=== PATIENT | female | born 1990 | race Two or more races ===

== ENCOUNTER 2023-10-05 20:08 | Emergency (ER) | payer MEDICAID ==
[~2023-10-05] VITALS: Ht 149.9 cm; Wt 82.5 kg
[~2023-10-05 20:08] MED LIST: CEPH500C PO
[2023-10-06 00:50] VITALS: BP 146/96; TEMP 98.4; O2SAT 97
[2023-10-06 00:51] VITALS: PULSE 85; RESP 18
[2023-10-06] MEDS ORDERED: BUTACC PO (01:14)
[2023-10-06] MEDS ORDERED: ZOFR4T PO (01:14)
[2023-10-06] MEDS ORDERED: PROCHLORPERAZINE MALEATE 10 MG TAB PO ONE (01:15)
[2023-10-06] MEDS ORDERED: KETOROLAC TROMETH 60MG/2ML VIAL IM ONE (01:15)
[2023-10-06] MEDS ORDERED: HYDROcodone-ACET 5/325MG TAB PO ONE (01:15)
== END 2023-10-06 02:31 | disposition home or self-care (01) ==
LOC: ER 20:08
DX: G43.909 Migraine, unspecified, not intractable, without status migrainosus (principal)
CPT/HCPCS: 70450

== ENCOUNTER 2024-11-25 14:49 | Emergency (ER) | payer MEDICAID ==
[~2024-11-25] VITALS: Ht 149.9 cm; Wt 80.0 kg
[~2024-11-25 14:49] MED LIST changes: +BUTACC PO; +ZOFR4T PO
--- NOTE | 2024-11-25 15:06 | ED.PDOC ---
HPI Comments THIS IS A 34 YEAR OLD FEMALE PRESENTING TO THE ED WITH CHIEF COMPLAINT OF LACERATION. PATIENT REPORTS THAT SHE HAD BEEN WASHING DISHES WHEN SHE ACCIDENTALLY BROKE A GLASS, CAUSING HER TO CUT HER RIGHT HAND. PATIENT NOTES SHE HAS CONTROLLED HER BLEEDING. PATIENT REQUESTS TETANUS VACCINE. PATIENT DENIES ANY UNCONTROLLED BLEEDING, NUMBNESS, WEAKNESS, OR ANY FURTHER QUESTIONS AT THIS TIME.NO OTHER SYMPTOMS REPORTED AT THIS TIME OF CARE. Chief Complaint: Laceration Time Seen by MD: 15:04 Reviewed Notes: Nurses Notes, Medications, Allergies Allergies: Coded Allergies: NO KNOWN ALLERGIES (Unverified , 08/25/13) Home Meds Active Scripts Cephalexin Monohydrate (Cephalexin) 500 Mg Cap, 1 CAP PO QID, #28 CAP Prov:JONE THOMPSON 11/25/24 Ondansetron Odt 4MG Tab (ZOFRAN PO) 4 Mg Tb, 1 TAB PO Q8HPRN PRN, #10 TAB as needed for nausea vomitingODT TAB-DISSOLVE IN MOUTH, THEN SWALLOW Prov:DAVID STEWART SEARCH DEVELOPER 10/06/23 Sqiidigbpp-Lixngag-Irvqknxh (Fiorinal Capsule) 1 Cap Cp, 1 CAP PO Q6HPRN PRN, #8 CAP as neede for headache Prov:DAVID STEWART Q SEARCH DEVELOPER 10/06/23 Cephalexin Monohydrate (Cephalexin) 500 Mg Cap, 1 CAP PO TID for 5 Days, #15 CAP Prov:ZHOU MORILLO DO 07/19/23 Information Source: Patient Mode of Arrival: Ambulatory Severity: Mild, Moderate Severity of Laceration: Controlled Bleeding Complexity: Intermediate Timing: Hours Prehospital treatment: None Laceration Location: Hand Mechanism: Glass Last Tetanus: > 5 Years, Unknown Laceration Length (cm): 3 Skin Type: Flap Depth of Injury: SQ Tendon Injury: 0% Tender: Mild Discharge: None Associated Signs and Symptoms: None Past Medical History PAST MEDICAL HISTORY: Denies Surgical History: Denies all surgeries ASBESTOS REMOVAL SUPERVISOR History: No Pertinent ASBESTOS REMOVAL SUPERVISOR History Family History Family History: Unknown Social History Smoker: Non-Smoker Alcohol: Denies ETOH Use Drugs: Denies Drug Use Lives In: Home Constitutional: denies: chills, diaphoresis, fatigue, fever, malaise, sweats, weakness, others EENTM: denies: blurred vision, double vision, ear bleeding, ear discharge, ear drainage, ear pain, ear ringing, eye pain, eye redness, hearing loss, mouth pain, mouth swelling, nasal discharge, nose bleeding, nose congestion, nose pain, photophobia, tearing, throat pain, throat swelling, voice changes, others Respiratory: denies: cough, hemoptysis, orthopnea, SOB at rest, shortness of breath, SOB with excertion, stridor, wheezing, others Cardiovascular: denies: chest pain, dizzy spells, diaphoresis, Dyspnea on exertion, edema, irregular heart beat, left arm pain, lightheadedness, palpitations, PND, syncope, others Gastrointestinal: denies: abdomen distended, abdominal pain, blood streaked bowels, constipated, diarrhea, dysphagia, difficulty swallowing, hematemesis, melena, nausea, poor appetite, poor fluid intake, rectal bleeding, rectal pain, vomiting, others Genitourinary: denies: abnormal vagina bleeding, burning, dyspareunia, dysuria, flank pain, frequency, hematuria, incontinence, pain, , vagina discharge, urgency, others Neurological: denies: dizziness, fainting, headache, left sided numbness, left sided weakness, numbness, paresthesia, pre-existing deficit, right sided numbness, right sided weakness, seizure, speech problems, tingling, tremors, weakness, others Musculoskeletal: denies: back pain, gout, joint pain, joint swelling, muscle pain, muscle stiffness, neck pain, others Integumetry: reports: laceration (RIGHT HAND ); denies: bruises, change in color, change in hair/nails, dryness, lesions, lumps, rash, wounds, others Allergic/Immunocompromised: denies: Difficulty Healing, Frequent Infections, Hives, Itching, others Hematologic/Lymphatic: denies: anemia, blood clots, easy bleeding, easy bruising, swollen glands, others Endocrine: denies: excessive hunger, excessive sweating, excessive thirst, excessive urination, flushing, intolerance to cold, intolerance to heat, unexplained weight gain, unexplained weight loss, others Psychiatric: denies: anxiety, bipolar disorder, depression, hopeless, panic disorder, schizophrenia, sleepless, suicidal, others All Other Systems: Reviewed and Negative Physical Exam General Appearance: No Apparent Distress, Obese HEENT: Normal ENT Inspection, PERRL/EOMI, Pharynx Normal, TMs Normal Neck: Full Range of Motion, Non-Tender, Normal, Normal Inspection Respiratory: Chest Non-Tender, Lungs Clear, No Accessory Muscle Use, No Respiratory Distress, Normal Breath Sounds Cardiovascular: No Edema, No JVD, No Murmur, No Gallop, Normal Peripheral Pulses, Regular Rate/Rhythm Breast Exam: Deferred Gastrointestinal: No Organomegaly, Non Tender, No Pulsatile Mass, Normal Bowel Sounds, Soft Genitalia: Deferred Pelvic: Deferred Rectal: Deferred Extremities: No calf tenderness, Normal capillary refill, Normal range of motion, No pedal edema, Tender (AND LACERATION ON RIGHT DORSAL HAND, NO BONY TENDERNESS, SWELLING AND DEFORMITY. ) Musculoskeletal : Apperance: Normal Neurologic: Alert, health and fitness instructor II-XII nml as Tested, No Motor Deficits, Normal Affect, Normal Mood, No Sensory Deficits Cerebellar Function: Normal Reflexes: Normal Skin: Dry, Lacerations (3CM IRREGULAR LACERATION ON RIGHT DORSAL HAND, NO BLEEDING AND FB, NEUROVASCULAR INTACT, NORMAL ROM. ), Normal Color, Warm Peripheral Pulses: 2+ carotid (R), 2+ carotid (L) Lymphatic: No Adenopathy Was a procedure done? Was a procedure done?: Yes Sedation Sedation?: No Laceration Repair : Location RIGHT HAND Length 3CM Anesthetic: Lidocaine, Without epi Laceration Repair Prep: Saline, Manual Scrub Laceration Repair Wound Comple: epidermis/dermis repair, subcut tissue repair Laceration Repair: Number of sutures (8, 4-0 ETHILON SUTURES), SQ, Size (4- 0), Nylon, Simple, Bacitracin, Gauze Informed consent obtained: No Risks, benefits, and alternati: Yes Images 1 - Differential diagnosis Generic Laceration: Laceration X-Ray, Labs, Meds, VS Vital Signs Date Time Temp Pulse Resp B/P (MAP) Pulse Ox O2 Delivery O2 Flow Rate FiO2 11/25/24 14:54 98.2 89 16 150/90 97 98.2 X-Ray, Labs, Meds, VS Comment EXTERNAL MEDICAL RECORDS REVIEWED: [NONE] INDEPENDENT HISTORIANS: [NONE] SOCIAL DETERMINANTS OF HEALTH: [NONE] LABS ORDERED: NONE REVIEWED AND INTERPRETED RESULTS: NONE IMAGING ORDERED: NONE TREATMENTS ORDERED: LIDOCAINE PROCEDURES PERFORMED: LACERATION REPAIR OF RIGHT HAND CRITICAL CARE TIME: NONE I HAVE DISCUSSED THE PATIENT WITH THE ATTENDING PHYSICIAN DR. SNIDER AND HE AGREES WITH THE PATIENT'S PLAN OF CARE AND DISPOSITION. BASED ON HISTORY OF PRESENT ILLNESS, AND PHYSICAL EXAM, PATIENT WILL BE DISCHARGED HOME. DISCUSSED PLAN FOR DISCHARGE HOME WITH RX []. MEDICATION WARNINGS GIVEN. SHARED DECISION MAKING: DISCUSSED WITH PATIENT THAT THEIR WORKUP WAS NORMAL. PATIENT INSTRUCTED TO FOLLOW UP WITH PRIMARY CARE PROVIDER IN 1-2 DAYS FOR RE- EVALUATION OF SYMPTOMS. PATIENT VERBALIZES UNDERSTANDING TO RETURN TO ED FOR NEW OR WORSENING SYMPTOMS OR IF FOLLOW UP WITH PCP CANNOT BE OBTAINED. PATIENT FEELS COMFORTABLE GOING HOME AT THIS TIME. ALL QUESTIONS ADDRESSED AT TIME OF DISCHARGE. Time of 1ST Reevaluation: 15:30 Reevaluation 1ST: Unchanged Patient Education/Counseling: Diagnosis, Treatment, Need For Follow Up Family Education/Counseling: Diagnosis, Treatment, Need For Follow Up Medical Screening: No EMC Exist At This Time Departure 1 Departure Time of Disposition: 15:30 Impression: Primary Impression: Laceration of right hand Qualified Codes: S61.411A - Laceration without foreign body of right hand, initial encounter Disposition: HOME / SELF CARE / HOMELESS Condition: Stable Additional Instructions: FOLLOW-UP WITH PCP IN 1 TO 2 DAYS. TAKE MEDICATIONS PRESCRIBED. RETURN TO ED FOR ANY NEW OR WORSENING SYMPTOMS. e-Prescriptions Cephalexin Monohydrate (Cephalexin) 500 Mg Cap 1 CAP PO QID, #28 CAP Prov: JONE THOMPSON 11/25/24 Discharged With: Self Critical Care Note Critical Care Time?: No Stability Stability form required: No Heart Score Heart Score: Heart Score Response (Comments) Value History N/A 0 EKG N/A 0 Age N/A 0 Risk Factors N/A 0 Troponin N/A 0 Total 0 I personally scribed for JONE THOMPSON ([email or web address]) on 11/25/24 at 15:06. Electronically submitted by Aravind Glaser ([email or web address]). I personally scribed for JONE THOMPSON ([email or web address]) on 11/25/24 at 15:14. Electronically submitted by Aravind Glaser ([email or web address]). I personally scribed for JONE THOMPSON ([email or web address]) on 11/25/24 at 15:19. Electronically submitted by Aravind Glaser ([email or web address]). JONE THOMPSON Nov 25, 2024 15:06
[2024-11-25] MEDS ORDERED: CEPH500C PO (15:18)
[2024-11-25] MEDS: TETANUS-DIPTH-ACEL PERTUSSIS 0.5ML SYR Tdap IM ONE (15:20)
[2024-11-25 15:23] VITALS: BP 129/79; TEMP 98
[2024-11-25 15:24] VITALS: PULSE 80; RESP 16; O2SAT 100
== END 2024-11-25 15:26 | disposition home or self-care (01) ==
LOC: ER 14:49
DX: S61.411A Laceration without foreign body of right hand, initial encounter (principal); W25.XXXA Contact with sharp glass, initial encounter; Y93.G1 Activity, food preparation and clean up; Y92.89 Other specified places as the place of occurrence of the external cause; Y99.8 Other external cause status
CPT/HCPCS: 12002; 12032; 90471; 90715

== ENCOUNTER → 2025-02-20 19:09 | Emergency (ER) | payer MEDICAID ==
[~2025-02-20] VITALS: Ht 149.9 cm; Wt 84.9 kg
[~2025-02-20 19:09] MED LIST changes: +ACET500T58 PO; +IBUP-1456 PO
--- NOTE | 2025-02-20 19:39 | ED.PDOC ---
Eye-HPI HPI Comments 34 y/o obese, Nepali-speaking F presents with spouse for c/c of throat swelling with associated throat and left ear pain on-and-off for 1x week. Denies any shortness of breath, fever, chills, or further acute symptoms. No endorsed known recent sick contact or travel or pertinent medical history. Vitals stable and within normal limits. Chief Complaint: Earache Time Seen by MD: 19:30 Reviewed Notes: Nurses Notes, Medications, Allergies Allergies: Coded Allergies: NO KNOWN ALLERGIES (Unverified , 08/25/13) Home Meds Active Scripts Cephalexin Monohydrate (Cephalexin) 500 Mg Cap, 1 CAP PO QID, #28 CAP Prov:JONE THOMPSON 11/25/24 Ondansetron Odt 4MG Tab (ZOFRAN PO) 4 Mg Tb, 1 TAB PO Q8HPRN PRN, #10 TAB as needed for nausea vomitingODT TAB-DISSOLVE IN MOUTH, THEN SWALLOW Prov:DAVID STEWART CORRECTIONS CASEWORKER 10/06/23 Neybapubbk-Geummov-Nnkudofv (Fiorinal Capsule) 1 Cap Cp, 1 CAP PO Q6HPRN PRN, #8 CAP as neede for headache Prov:DAVID STEWART Q CORRECTIONS CASEWORKER 10/06/23 Cephalexin Monohydrate (Cephalexin) 500 Mg Cap, 1 CAP PO TID for 5 Days, #15 CAP Prov:ZHOU MORILLO DO 07/19/23 Information Source: Patient Mode of Arrival: Ambulatory Timing: Hours Duration: Since onset Oropharynx: Red Onset: Spontaneous Past Medical History PAST MEDICAL HISTORY: Denies Surgical History: Denies all surgeries SOLUTION ENGINEER History: No Pertinent SOLUTION ENGINEER History Family History Family History: Unknown Social History Smoker: Non-Smoker Alcohol: Denies ETOH Use Drugs: Denies Drug Use Lives In: Home Constitutional: denies: chills, diaphoresis, fatigue, fever, malaise, sweats, weakness, others EENTM: reports: ear pain (left ), throat pain, throat swelling; denies: blurred vision, double vision, ear bleeding, ear discharge, ear drainage, ear ringing, eye pain, eye redness, hearing loss, mouth pain, mouth swelling, nasal discharge, nose bleeding, nose congestion, nose pain, photophobia, tearing, voice changes, others Respiratory: denies: cough, hemoptysis, orthopnea, SOB at rest, shortness of breath, SOB with excertion, stridor, wheezing, others Cardiovascular: denies: chest pain, dizzy spells, diaphoresis, Dyspnea on exertion, edema, irregular heart beat, left arm pain, lightheadedness, palpitations, PND, syncope, others Gastrointestinal: denies: abdomen distended, abdominal pain, blood streaked bowels, constipated, diarrhea, dysphagia, difficulty swallowing, hematemesis, melena, nausea, poor appetite, poor fluid intake, rectal bleeding, rectal pain, vomiting, others Genitourinary: denies: abnormal vagina bleeding, burning, dyspareunia, dysuria, flank pain, frequency, hematuria, incontinence, pain, , vagina discharge, urgency, others Neurological: denies: dizziness, fainting, headache, left sided numbness, left sided weakness, numbness, paresthesia, pre-existing deficit, right sided numbness, right sided weakness, seizure, speech problems, tingling, tremors, weakness, others Musculoskeletal: denies: back pain, gout, joint pain, joint swelling, muscle pain, muscle stiffness, neck pain, others Integumetry: denies: bruises, change in color, change in hair/nails, dryness, laceration, lesions, lumps, rash, wounds, others Allergic/Immunocompromised: denies: Difficulty Healing, Frequent Infections, Hives, Itching, others Hematologic/Lymphatic: denies: anemia, blood clots, easy bleeding, easy bruising, swollen glands, others Endocrine: denies: excessive hunger, excessive sweating, excessive thirst, excessive urination, flushing, intolerance to cold, intolerance to heat, unexplained weight gain, unexplained weight loss, others Psychiatric: denies: anxiety, bipolar disorder, depression, hopeless, panic disorder, schizophrenia, sleepless, suicidal, others All Other Systems: Reviewed and Negative Physical Exam General Appearance: Mild Distress (Mild distress due to ear and throat pain concerns.), Obese HEENT: Other (Mildly beefy oropharynx with mild tonsillar pillar involvement. No exudate noted. Airway is patent. Left ear evaluation was unremarkable. Scant debris noted in the canals and TM was unimpressive.) Neck: Full Range of Motion, Non-Tender, Normal, Normal Inspection Respiratory: Chest Non-Tender, Lungs Clear, No Accessory Muscle Use, No Respiratory Distress, Normal Breath Sounds Cardiovascular: No Edema, No JVD, No Murmur, No Gallop, Normal Peripheral Pulses, Regular Rate/Rhythm Breast Exam: Deferred Gastrointestinal: No Organomegaly, Non Tender, No Pulsatile Mass, Normal Bowel Sounds, Soft Genitalia: Deferred Pelvic: Deferred Rectal: Deferred Extremities: No calf tenderness, Normal inspection, Non-tender Neurologic: Alert Cerebellar Function: NOT DONE Reflexes: NOT DONE Skin: Dry, Normal Color, Warm Lymphatic: No Adenopathy Was a procedure done? Was a procedure done?: No EENT DIFF Eye: N/A Ear: Otitis Externa, Otitis Media, Pharyngitis Nose: N/A Mouth: N/A Sore Throat: Streptococcal, Viral Pharyngitis X-Ray, Labs, Meds, VS Vital Signs Date Time Temp Pulse Resp B/P (MAP) Pulse Ox O2 Delivery O2 Flow Rate FiO2 02/20/25 19:13 97.9 86 18 125/80 97 97.9 X-Ray, Labs, Meds, VS Comment Physical exam was unremarkable for any additional study intervention. Patient appears to have a viral pharyngitis. Patient was given a shot of dexamethasone to ease some of the discomfort. Advised patient utilize Tylenol and or Motrin as well as good hydration and healthy nutrition throughout illness event. Time of 1ST Reevaluation: 19:50 Reevaluation 1ST: Improved Consultation: PCP Patient Education/Counseling: Diagnosis, Treatment, Need For Follow Up Family Education/Counseling: Diagnosis, Treatment, Need For Follow Up SEPSIS Sepsis Screen Date sepsis recognized/suspect: Feb 20, 2025 Time Sepsis recognized/suspect: 1914 Recent Procedure: No On Antibiotic Therapy: No Respiratory Rate >20: No Heart Rate >90: No Temp<36 C (96.8 F) or >38.3 C: No SBP <90 or MAP <65 mmHG: No New Acute Mental Status Change: No Is the patient on CPAP, BIPAP,: No Vital Signs Date Time Temp Pulse Resp B/P (MAP) Pulse Ox O2 Delivery O2 Flow Rate FiO2 02/20/25 19:13 97.9 86 18 125/80 97 97.9 Departure 1 Departure Time of Disposition: 19:50 Impression: Primary Impression: Viral pharyngitis Disposition: HOME / SELF CARE / HOMELESS Condition: Stable Additional Instructions: Advised patient utilize Tylenol and or Motrin as needed for symptomatic pain relief as well as good hydration and healthy nutrition throughout illness event. e-Prescriptions Acetaminophen (Acetaminophen) 500 Mg Tab 500 MG PO Q4HP PRN, #30 TAB Prov: DOMITILA TELLEZ PAC 02/20/25 Ibuprofen (Ibuprofen) 800 Mg Tab 1 TAB PO Q8HP PRN, #20 TAB 0 Refills Prov: DOMITILA TELLEZ PAC 02/20/25 Discharged With: Self, Spouse Critical Care Note Critical Care Time?: No Stability Stability form required: No Heart Score Heart Score: Heart Score Response (Comments) Value History N/A 0 EKG N/A 0 Age N/A 0 Risk Factors N/A 0 Troponin N/A 0 Total 0 I personally scribed for DOMITILA TELLEZ PAC ([email or web address]) on 02/20/25 at 19:39. Electronically submitted by Conner Hester ([email or web address]). DOMITILA TELLEZ PAC Feb 20, 2025 19:39
[2025-02-20 20:18] VITALS: BP 121/78; PULSE 78; RESP 18; TEMP 98.1; O2SAT 97
== END | disposition home or self-care (01) ==
LOC: ER 19:09
DX: J02.8 Acute pharyngitis due to other specified organisms (principal); B97.89 Other viral agents as the cause of diseases classified elsewhere
CPT/HCPCS: 96372; 99283; J1100